=== PATIENT | female | born 1955 | race Caucasian/White ===

== ENCOUNTER 2017-06-15 10:10 | Emergency (ER) | payer OTHER ==
[2017-06-15 13:26] VITALS: BP 130/74
== END 2017-06-15 13:26 | disposition home or self-care (01) ==
LOC: ED 10:10
DX: M25.551 Pain in right hip (principal); E11.9 Type 2 diabetes mellitus without complications; I10 Essential (primary) hypertension; E78.00 Pure hypercholesterolemia, unspecified; M54.16 Radiculopathy, lumbar region; Z88.5 Allergy status to narcotic agent
CPT/HCPCS: J1100; J1885